=== PATIENT | female | born 1960 | race African-American/Black ===

== ENCOUNTER → 2017-04-10 | Outpatient (CLI) | payer MEDICARE ==
[~2017-04-10] MED LIST: AMBIEN 10MG10 MG PO; AMBIEN10 MG PO; CARAFATE 1GM1 G PO; CLINDAMYCIN HC300 MG PO; DECONAMINE SR 81 CER PO; DESYREL 100MG100 MG PO; FLEXERIL 1010 MG/TAB PO; NAPROSYN500 MG PO; NEXIUM40 MG PO; NO HOME MEDICATIONS; NORCO 325 MG-7.1 TAB PO; PERCOCET 325 MG1 TA2 PO; PHENERGAN W/CO120 ML PO; PREDNISONE20 MG PO; PROAIR HFA0.09 MG/AC IH; ULTRAM 50MG TAB50 MG PO; ZITHROMAX 250M250 MG PO; ZITHROMAX Z PA250 MG PO; psych med
[2017-04-10 17:25] LABS: ALBUMIN 4.6 gm/dL (3.5-5.0); BILIRUBIN,TOTAL 0.4 mg/dL (0.0-1.0); CALCIUM 9.6 mg/dL (8.4-10.2); CREATININE, serum 0.62 mg/dL (0.52-1.25); POTASSIUM 3.9 mmol/L (3.4-5.0); TOTAL PROTEIN 8.1 gm/dL (6.4-8.2)
[2017-04-10 17:28] LABS: BASO % 0.2 % (0.0-2.0); EOS # 0.3 (0.0-0.7); EOS % 2.6 % (0-4.0); GRAN # 8.7 (1.4-6.5); GRAN % 65.1 % (42.2-75.2); HEMATOCRIT 43.1 % (37.0-47.0); HEMOGLOBIN 14.5 g/dl (12.5-16.0); LYMPH # 3.3 (1.2-3.4); LYMPH % 24.4 % (20.0-51.0); MEAN CELL VOLUME 100 fl (80.0-100.0); MEAN CORPUSCULAR HEMOGLOBIN 34 pg (27.0-31.0); MEAN CORPUSCULAR HGB CONC 34 g/dl (33.0-37.0); MEAN PLATELET VOLUME 11.9 fl (7.4-10.4); MONO % 7.4 % (1.7-9.3); PLATELET COUNT 271 K/mm3 (130-400); RED BLOOD COUNT 4.31 M/mm3 (4.10-5.30); REDCELL DISTRIBUTION WIDTH-CV 12.4 % (11.5-14.5)
== END ==
LOC: COL.LAB 15:24
PROVIDERS: Family Medicine
DX: D50.9 Iron deficiency anemia, unspecified (principal); R10.9 Unspecified abdominal pain

== ENCOUNTER 2017-04-13 17:42 | Emergency (ER) | payer MEDICARE ==
[~2017-04-13] VITALS: Ht 162.6 cm; Wt 83.2 kg
[2017-04-13 17:43] VITALS: TEMP 98.8
[2017-04-13 18:45] LABS: COLLECTION METHOD CLEAN CATCH
[2017-04-13 18:52] LABS: BASO % 0.3 % (0.0-2.0); EOS # 0.3 (0.0-0.7); EOS % 3.1 % (0-4.0); GRAN # 6.5 (1.4-6.5); GRAN % 61.1 % (42.2-75.2); HEMATOCRIT 39.9 % (37.0-47.0); HEMOGLOBIN 13.5 g/dl (12.5-16.0); LYMPH # 2.9 (1.2-3.4); LYMPH % 27.2 % (20.0-51.0); MEAN CELL VOLUME 99 fl (80.0-100.0); MEAN CORPUSCULAR HEMOGLOBIN 34 pg (27.0-31.0); MEAN CORPUSCULAR HGB CONC 34 g/dl (33.0-37.0); MEAN PLATELET VOLUME 10.6 fl (7.4-10.4); MONO # 0.9 (0.1-0.6); PLATELET COUNT 286 K/mm3 (130-400); RED BLOOD COUNT 4.03 M/mm3 (4.10-5.30)
[2017-04-13] MEDS ORDERED: HALDOL DEC100 MG/1 M IM (18:52)
[2017-04-13 18:54] LABS: ALBUMIN 4.4 gm/dL (3.5-5.0); BILIRUBIN,TOTAL 0.3 mg/dL (0.0-1.0); C-REACTIVE PROTEIN 6.1 mg/dL (0.0-0.9); CALCIUM 9.3 mg/dL (8.4-10.2); CREATININE, serum 0.57 mg/dL (0.52-1.25); POTASSIUM 3.5 mmol/L (3.4-5.0); TOTAL PROTEIN 8.2 gm/dL (6.4-8.2)
[2017-04-13 18:58] LABS: PH 6 (5-8); URINE APPEARANCE Clear; URINE BACTERIA Rare /hpf; URINE BILIRUBIN Negative (NEGATIVE); URINE BLOOD 2+ (NEGATIVE); URINE COLOR Yellow; URINE GLUCOSE Negative (NEGATIVE); URINE KETONE Negative (NEGATIVE); URINE LEUKOCYTE ESTERASE Negative (NEGATIVE); URINE NITRATE Negative (NEGATIVE); URINE PROTEIN(semi-quant) Negative (NEGATIVE); URINE RBC 0-2 /hpf; URINE UROBILINOGEN Negative (NEGATIVE)
[2017-04-13] MEDS ORDERED: FLAGYL500 MG PO (20:54)
[2017-04-13] MEDS ORDERED: PHENERGAN 25 TA25 MG PO (20:54)
[2017-04-13] MEDS ORDERED: NORCO 325 MG-51 TAB PO (20:54)
[2017-04-13] MEDS ORDERED: CIPRO 500MG TA500 MG PO (20:54)
[2017-04-13 21:10] VITALS: BP 142/89
[2017-04-13 22:00] VITALS: PULSE 90
== END 2017-04-13 22:00 | disposition home or self-care (01) ==
LOC: COL.ER 17:42
PROVIDERS: Emergency Medicine
DX: K57.92 Diverticulitis of intestine, part unspecified, without perforation or abscess without bleeding (principal); F17.210 Nicotine dependence, cigarettes, uncomplicated; Z90.49 Acquired absence of other specified parts of digestive tract
CPT/HCPCS: J1170; J2270; J2405; J7030; Q9967

== ENCOUNTER → 2017-05-02 | Outpatient (CLI) | payer MEDICARE ==
[~2017-05-02] MED LIST changes: +CIPRO 500MG TA500 MG PO; +FLAGYL500 MG PO; +HALDOL DEC100 MG/1 M IM; +NORCO 325 MG-51 TAB PO; +PHENERGAN 25 TA25 MG PO
== END ==
LOC: COL.RAD 08:02
DX: D35.02 Benign neoplasm of left adrenal gland (principal)
CPT/HCPCS: A9585

== ENCOUNTER 2017-07-05 07:09 | Day surgery (SDC) | payer MEDICARE ==
[~2017-07-05] VITALS: Ht 162.6 cm; Wt 84.8 kg
[2017-07-05 07:31] VITALS: BP 130/89; PULSE 66; TEMP 98
[2017-07-05 08:49] VITALS: BP 143/92; PULSE 82; TEMP 97.6
[2017-07-05 09:05] VITALS: BP 121/89; PULSE 80
[2017-07-05 09:20] VITALS: BP 124/79; PULSE 94
== END 2017-07-05 09:40 | disposition home or self-care (01) ==
LOC: SDCO 07:09
DX: K63.5 Polyp of colon (principal); K57.30 Diverticulosis of large intestine without perforation or abscess without bleeding; F25.9 Schizoaffective disorder, unspecified
CPT/HCPCS: OP; J2250; J3010; J7030

== ENCOUNTER 2018-07-03 12:34 | Emergency (ER) | payer MEDICARE ==
[~2018-07-03] VITALS: Ht 162.6 cm; Wt 81.8 kg
[2018-07-03 12:41] VITALS: BP 163/73; TEMP 99
[2018-07-03] MEDS ORDERED: LIDODERM 5% PATC1 EA TP (13:30)
[2018-07-03 13:38] VITALS: PULSE 75
== END 2018-07-03 13:40 | disposition home or self-care (01) ==
LOC: COL.ER 12:34
DX: M54.42 Lumbago with sciatica, left side (principal); F17.210 Nicotine dependence, cigarettes, uncomplicated; F25.9 Schizoaffective disorder, unspecified; Z88.0 Allergy status to penicillin
CPT/HCPCS: J1885

== ENCOUNTER 2018-10-08 07:10 | Emergency (ER) | payer MEDICARE ==
[~2018-10-08] VITALS: Ht 162.6 cm; Wt 81.8 kg
[~2018-10-08 07:10] MED LIST changes: +LIDODERM 5% PATC1 EA TP
[2018-10-08 07:17] VITALS: TEMP 97.6
[2018-10-08 08:29] VITALS: BP 131/91; PULSE 89
== END 2018-10-08 08:24 | disposition home or self-care (01) ==
LOC: COL.ER 07:10
DX: G43.909 Migraine, unspecified, not intractable, without status migrainosus (principal); F17.210 Nicotine dependence, cigarettes, uncomplicated; Z98.51 Tubal ligation status
CPT/HCPCS: J1200; J1885; J2550

== ENCOUNTER 2019-04-22 13:44 | Outpatient (RCR) | payer OTHER | END 2019-06-10 12:59 | disposition home or self-care (01) | LOC: WSOH 13:44 | DX: S80.01XA Contusion of right knee, initial encounter (principal); S80.02XA Contusion of left knee, initial encounter; F17.210 Nicotine dependence, cigarettes, uncomplicated; Z90.49 Acquired absence of other specified parts of digestive tract; F20.9 Schizophrenia, unspecified; Y99.0 Civilian activity done for income or pay ==

== ENCOUNTER → 2021-06-10 | Outpatient (CLI) | payer MEDICARE, MEDICAID | LOC: COL.RAD 14:50 | DX: Z12.2 Encounter for screening for malignant neoplasm of respiratory organs (principal); J43.9 Emphysema, unspecified; F17.210 Nicotine dependence, cigarettes, uncomplicated ==